=== PATIENT | female | born 1995 | race Caucasian/White ===

== ENCOUNTER 2017-02-16 08:48 | Outpatient (CLI) | payer BC ==
--- NOTE | 2017-02-16 10:23 | ULT ---
RIGHT UPPER QUADRANT ULTRASOUND: HISTORY: Abdominal pain. FINDINGS: There is mild increased echogenicity of the hepatic parenchyma. No focal hepatic lesion. There are se veral foci of increased echogenicity in the gallbladder lumen. The gallbladder is moderately distende d. Shadowing from cholelithiasis does limit visualization of the gallbladder wall. The common duct is normal where visualized at 2 mm. No ascites. IMPRESSION: 1. Cholelithiasis. No definitive evidence for sonographic findings of acute cholecystitis. Gannon's s ign is reported as negative. Correlate clinically. 2. Increased echogenicity of the hepatic parenchyma which can be seen in the setting of hepatic steat osis. This may be further assessed with dedicated liver function enzymes. POS: [facility]
== END 2017-02-16 08:49 | disposition home or self-care (01) ==
LOC: ULT 08:48
PROVIDERS: ATTEND Internal Medicine Gastroenterology
DX: R10.9 Unspecified abdominal pain (principal); K80.20 Calculus of gallbladder without cholecystitis without obstruction
CPT/HCPCS: 76700

== ENCOUNTER 2017-06-20 22:20 | Emergency (ER) | payer BC ==
[2017-06-20] MEDS ORDERED: Dexamethasone 4 mg/ml Vial ONE (23:00)
[2017-06-20 23:13] LABS: MONO NEGATIVE CONTROL ZONE White (Negative) (White); MONO POSITIVE CONTROL Pink Line (Positive) (PINK/RED); Mononucleosis NEGATIVE (NEGATIVE)
== END 2017-06-21 00:12 | disposition home or self-care (01) ==
LOC: ERS 22:20
DX: J02.9 Acute pharyngitis, unspecified (principal)
CPT/HCPCS: 36415; 86308; 87081; 87430; 99283; J1100

== ENCOUNTER 2017-06-23 19:11 | Emergency (ER) | payer BC ==
[2017-06-23] MEDS ORDERED: Ketorolac Tromethamine 30 MG/ML VIAL ONE (20:02)
[2017-06-23 20:20] LABS: Bilirubin Negative (Negative); Blood, Urine Negative (Negative); Clarity CLEAR (Clear); Glucose, Urine (Dipstick) Negative (Negative); Leukocyte Small (Negative); Nitrite Negative (Negative); Protein, Urine (Dipstick) Negative (Neg-Trace); Specific Gravity, Urine 1.022 (1.002-1.036); Urobilinogen 0.2 mg/dL (0.2-1.0)
[2017-06-23 20:22] LABS: Bacteria/HPF None Seen HPF (None Seen); Hyaline Casts/LPF 0-3 HYALINE CAST LPF (0-3 Hyaline); RBC/HPF 0-3 HPF (0-3); Squamous Epithelial 0-3 HPF (0-3)
== END 2017-06-23 20:54 | disposition home or self-care (01) ==
LOC: ERS 19:11
DX: J30.1 Allergic rhinitis due to pollen (principal); N39.0 Urinary tract infection, site not specified; J06.9 Acute upper respiratory infection, unspecified; Z79.899 Other long term (current) drug therapy
CPT/HCPCS: 81003; 81015; 87086; 96372; J1885

== ENCOUNTER 2022-10-04 21:38 | Emergency (ER) | payer SELFPAY | END 2022-10-04 23:29 | disposition home or self-care (01) | LOC: ERS 21:38 | DX: R22.43 Localized swelling, mass and lump, lower limb, bilateral (principal) | CPT/HCPCS: 99283 ==